=== PATIENT | male | born 1955 | race Caucasian/White ===

== ENCOUNTER → 2021-04-10 | Day surgery (SDC) | payer OTHER ==
[~2021-04-10] MED LIST: ASPIRIN EC81 MG PO; BETHANECHOL CHL50 MG PO; CATAPRES 0.1MG0.1 MG PO; FLOMAX 0.4 MG0.4 MG PO; GLUCOPHAGE1000 MG PO; GLUCOTROL5 MG PO; HYDROCODON-ACE1 EAC4 PO; LISINOPRIL5 MG PO; LOPRESSOR50 MG PO; LYRICA200 MG PO; QUESTRAN LIGHT 44 GM PO; SEROQUEL25 MG PO; VICTOZA 1818 MG/3 ML SC
== END | disposition home or self-care (01) ==
LOC: OR 05:39
DX: Z12.11 Encounter for screening for malignant neoplasm of colon (principal); D12.2 Benign neoplasm of ascending colon; D12.3 Benign neoplasm of transverse colon; K63.5 Polyp of colon; K64.4 Residual hemorrhoidal skin tags; I10 Essential (primary) hypertension; I48.0 Paroxysmal atrial fibrillation; E78.00 Pure hypercholesterolemia, unspecified; E11.9 Type 2 diabetes mellitus without complications; M19.90 Unspecified osteoarthritis, unspecified site; G43.909 Migraine, unspecified, not intractable, without status migrainosus; Z86.73 Personal history of transient ischemic attack (TIA), and cerebral infarction without residual deficits; Z87.891 Personal history of nicotine dependence; Z79.82 Long term (current) use of aspirin; Z79.84 Long term (current) use of oral hypoglycemic drugs; Z79.891 Long term (current) use of opiate analgesic; Z79.899 Other long term (current) drug therapy; Z20.822 Contact with and (suspected) exposure to COVID-19
CPT/HCPCS: J0171; J2704; J7120; U0002